=== PATIENT | female | born 1930 | race Asian ===

== ENCOUNTER 2018-09-17 08:23 | Inpatient (IN) | payer MEDICARE, MEDICAID ==
[~2018-09-17] VITALS: Ht 149.9 cm; Wt 44.9 kg
[2018-09-17] MEDS ORDERED: Morphine Sulfate 2mg/ml Inj IVP ONE (08:30)
[2018-09-17 08:49] VITALS: BP 196/79
[2018-09-17 08:53] LABS: BASOPHILS % (AUTO) 0.4 % (0.0-2.0); EOSINOPHILS % (AUTO) 1.2 % (0.0-3.0); HEMATOCRIT 32.5 % (37.0-47.0); HEMOGLOBIN 10.7 G/DL (12.0-16.0); LYMPHOCYTES % (AUTO) 50.7 % (20.0-45.0); MEAN CORPUSCULAR VOLUME 87 FL (80-99); MONOCYTES % (AUTO) 7.2 % (1.0-10.0); NEUTROPHILS % (AUTO) 40.6 % (45.0-75.0); PLATELET COUNT 251 K/UL (150-450); RED BLOOD COUNT 3.73 M/UL (4.20-5.40); RED CELL DISTRIBUTION WIDTH 12.2 % (11.6-14.8); WHITE BLOOD COUNT 4.5 K/UL (4.8-10.8)
--- NOTE | 2018-09-17 09:07 | Emergency Room Report ---
History of Present Illness General Chief Complaint: Multiple Trauma/Fall Source: Patient Present Illness HPI 88-year-old female resents ED for evaluation. Patient brought in by EMS status post fall. Fell this morning. Hit her head. Deformity to the right hip. No LOC. Denies chest pain or shortness of breath. Denies any headache. Pain to the hip is a 10 out of 10, sharp, nonradiating. Tetanus unknown. No other injuries. No other aggravating relieving factors. Denies any other associated symptoms Allergies: Coded Allergies: No Known Allergies (Unverified , 09/17/18) Patient History Past Medical History: none Past Surgical History: none Pertinent Family History: none Social History: Denies: smoking, alcohol use, drug use Now: No Immunizations: UTD Reviewed Nursing Documentation: PMH: Agreed; PSxH: Agreed Nursing Documentation-PMH Past Medical History: No Stated History Review of Systems All Other Systems: negative except mentioned in HPI Physical Exam Vital Signs Date Time Temp Pulse Resp B/P (MAP) Pulse Ox O2 Delivery O2 Flow Rate FiO2 09/17/18 08:18 97.3 72 18 210/103 97 Room Air 09/17/18 08:49 100 Sp02 EP Interpretation: reviewed, normal General Appearance: no apparent distress, alert, GCS 15, non-toxic Head: normocephalic, other - abrasion to R side of scalp Eyes: bilateral eye normal inspection, bilateral eye PERRL ENT: normal ENT inspection Neck: normal inspection Respiratory: chest non-tender, lungs clear, normal breath sounds, speaking full sentences Cardiovascular #1: regular rate, rhythm, no edema Gastrointestinal: normal bowel sounds, non tender, soft, non-distended, no guarding, no rebound Rectal: deferred Genitourinary: no CVA tenderness, other - prolapsed uterus = [place] present Musculoskeletal: tender - deformity R hip Neurologic: alert, oriented x3, responsive, motor strength/tone normal, sensory intact, speech normal Psychiatric: normal inspection Skin: normal inspection Lymphatic: normal inspection Medical Decision Making Diagnostic Impression: Primary Impression: Multiple injuries due to trauma Additional Impressions: Scalp abrasion Qualified Codes: S00.01XA - Abrasion of scalp, initial encounter Intertrochanteric fracture of right femur Qualified Codes: S72.141A - Displaced intertrochanteric fracture of right femur, initial encounter for closed fracture Prolapsed uterus Hypertension Qualified Codes: I10 - Essential (primary) hypertension ER Course Hospital Course 88-year-old female presents to ED with R hip pain and shortening s/p fall. abrasion to scalp Differential diagnoses include: fracture, dislocation, contusion Clinical course Patient placed on stretcher. After initial history and physical I ordered labs , pain medication, TDAP and imaging studies Labs reviewed- no leukocytosis noted, electrolytes okay, hemoglobin/hematocrit okay CT head no acute process CT Pelvis shows R comminuted intertrochanteric fx EKG - NSR, no acute ischemic changes interpreted by me On exam there also appears to be a prolapsed uterus. Patient states that she has had this for many years now. Does not want me to further evaluate and states she wants to focus on the hip. Abrasion to the scalp. Irrigated with hydrogen peroxide. Tetanus given. Hypertensive. Given hydralazine Case discussed with Dr. Appiah who agreed to consult on this case. Case discussed with Dr. Pineda who agreed to accept the patient to his service for further care and support i. I feel this is a highly complex case requiring extensive working including EKG/Rhythm strip, Xray/CT/US, Blood/urine lab work, repeat exams while in ED, and administration of strong opiates/narcotics for pain control, admission to hospital or close patient follow up. Diagnosis - intertrochanteric fracture, multiple injuries due to trauma, scalp abrasion, prolapsed uterus, hypertension Admitted to floor in serious condition Labs Test 09/17/18 08:42 White Blood Count 4.5 K/UL (4.8-10.8) Red Blood Count 3.73 M/UL (4.20-5.40) Hemoglobin 10.7 G/DL (12.0-16.0) Hematocrit 32.5 % (37.0-47.0) Mean Corpuscular Volume 87 FL (80-99) Mean Corpuscular Hemoglobin 28.7 PG (27.0-31.0) Mean Corpuscular Hemoglobin Concent 33.0 G/DL (32.0-36.0) Red Cell Distribution Width 12.2 % (11.6-14.8) Platelet Count 251 K/UL (150-450) Mean Platelet Volume 5.3 FL (6.5-10.1) Neutrophils (%) (Auto) 40.6 % (45.0-75.0) Lymphocytes (%) (Auto) 50.7 % (20.0-45.0) Monocytes (%) (Auto) 7.2 % (1.0-10.0) Eosinophils (%) (Auto) 1.2 % (0.0-3.0) Basophils (%) (Auto) 0.4 % (0.0-2.0) Prothrombin Time 10.3 SEC (9.30-11.50) Prothromb Time International Ratio 1.0 (0.9-1.1) Activated Partial Thromboplast Time 24 SEC (23-33) Sodium Level 140 MMOL/L (136-145) Potassium Level 3.7 MMOL/L (3.5-5.1) Chloride Level 104 MMOL/L (98-107) Carbon Dioxide Level 29 MMOL/L (21-32) Anion Gap 7 mmol/L (5-15) Blood Urea Nitrogen 20 mg/dL (7-18) Creatinine 0.8 MG/DL (0.55-1.30) Estimat Glomerular Filtration Rate mL/min (>60) Glucose Level 114 MG/DL (74-106) Calcium Level 9.0 MG/DL (8.5-10.1) Total Bilirubin 0.4 MG/DL (0.2-1.0) Aspartate Amino Transf (AST/SGOT) 27 U/L (15-37) Alanine Aminotransferase (ALT/SGPT) 16 U/L (12-78) Alkaline Phosphatase 59 U/L (46-116) Total Protein 8.3 G/DL (6.4-8.2) Albumin 3.7 G/DL (3.4-5.0) Globulin 4.6 g/dL Albumin/Globulin Ratio 0.8 (1.0-2.7) EKG Diagnostic Results Rate: normal Rhythm: NSR ST Segments: no acute changes ASA given to the pt in ED: No Rhythm Strip Diag. Results EP Interpretation: yes Rhythm: NSR, no PVC's, no ectopy CT/MRI/US Diagnostic Results CT/MRI/US Diagnostic Results #1: Imaging Test Ordered: CT head Impression no acute process CT/MRI/US Diagnostic Results #2: Imaging Test Ordered: CT Pelvis Impression comminuted R intertrochanteric fx. pelvic floor insufficiency ? prolapsed uterus Last Vital Signs Date Time Temp Pulse Resp B/P (MAP) Pulse Ox O2 Delivery O2 Flow Rate FiO2 09/17/18 08:49 72 16 Room Air 100 09/17/18 08:49 97.4 196/79 100 Status: improved Disposition: ADMITTED INPATIENT Condition: Serious Scripts No Active Prescriptions or Reported Meds Referrals: NOT CHOSEN IPA/,REFERRING (PCP) Kenn Mitchell MD Sep 17, 2018 09:07
[2018-09-17 09:12] LABS: ANION GAP 7 mmol/L (5-15); BLOOD UREA NITROGEN 20 mg/dL (7-18); CARBON DIOXIDE 29 MMOL/L (21-32); CHLORIDE 104 MMOL/L (98-107); CREATININE 0.8 MG/DL (0.55-1.30); POTASSIUM 3.7 MMOL/L (3.5-5.1); SODIUM 140 MMOL/L (136-145)
[2018-09-17 09:16] LABS: ALANINE AMINOTRANSFERASE 16 U/L (12-78); ALBUMIN 3.7 G/DL (3.4-5.0); ALBUMIN/GLOBULIN RATIO 0.8 (1.0-2.7); ALKALINE PHOSPHATASE 59 U/L (46-116); ASPARTATE AMINO TRANSFERASE 27 U/L (15-37); BILIRUBIN,TOTAL 0.4 MG/DL (0.2-1.0)
--- NOTE | 2018-09-17 09:27 | Diagnostic Imaging Report ---
Indications: Head trauma, 10 out of 10 pain, head laceration Technique: Spiral acquisitions obtained through the brain. Angled axial and coronal 5 x 5 mm slices were reconstructed. Total dose length product 1470.77 mGycm. CTDI vol(s) 70.38 mGy. Dose reduction achieved using automated exposure control Comparison: None. Findings: There is a right parietal region scalp hematoma. Air bubbles within the subcutaneous fat indicate penetrating trauma as well. No underlying calvarial abnormality. There is age-related enlargement of the ventricles and extra axial CSF spaces. There is periventricular deep white matter low-attenuation consistent with chronic ischemic change. No acute intracranial hemorrhage nor edema. No mass effect nor midline shift. Otherwise normal samayoa-white differentiation. Visualized orbits and sinuses are unremarkable. Impression: Evidence of right parietal region scalp soft tissue trauma with contusion and laceration. Negative for acute intracranial bleed or mass effect. Chronic and age-related changes, as described The CT scanner at [facility] is accredited by the [employer] and the scans are performed using protocols designed to limit radiation exposure to as low as reasonably achievable to attain images of sufficient resolution adequate for diagnostic evaluation.
[2018-09-17] MEDS ORDERED: Hydrogen Peroxide 473ml Bottle TOPIC ONE (09:30)
[2018-09-17] MEDS ORDERED: Tetanus/Diptheria/Pertussis Vaccine 0.5ml Syr IM ONE (09:45)
--- NOTE | 2018-09-17 10:06 | Diagnostic Imaging Report ---
Indication: Fell on right hip, 10 out of 10 right hip pain Technique: Noncontrast spiral acquisitions obtained through the pelvis. Multiplanar reconstructions generated. Total dose length product 273.76 mGycm. CTDIvol(s) 9.22 mGy. Dose reduction achieved using automated exposure control Comparison: none Findings: There is a comminuted intertrochanteric fracture of the right hip, with fracture line extending anteriorly into the femoral neck. This is impacted and slightly posteriorly angulated. No evidence of pelvic fracture. The hip joint spaces are preserved. The left hip is intact. The sacrum is intact. There are degenerative changes of the lumbosacral junction. There are also degenerative changes of the bilateral sacroiliac joints. There is a slight degree of soft tissue contusion of the overlying subcutaneous fat. There is evidence of significant pelvic floor insufficiency. Soft tissue attenuation structure extends at least 5 cm below the perineum, beyond the edge of the imaging volume. Per referring physician, patient has history of prolapsed uterus, so this presumably represents a severely retroverted uterus prolapse into the bladder floor. The rectum, anus, and bladder are appropriately positioned above the pelvic floor. The remaining pelvic viscera are grossly unremarkable. Impression: Positive for comminuted right hip intertrochanteric fracture Evidence of unusual pelvic floor insufficiency, with prolapse of what is probably a severely retroverted uterus Findings discussed by phone with Dr. Mitchell in the emergency room previously The CT scanner at [facility] is accredited by the [employer] and the scans are performed using protocols designed to limit radiation exposure to as low as reasonably achievable to attain images of sufficient resolution adequate for diagnostic evaluation.
[2018-09-17 10:15] VITALS: BP 161/64
[2018-09-17 10:30] VITALS: BP 130/63
[2018-09-17 11:00] VITALS: BP 135/67
--- NOTE | 2018-09-17 12:09 | History and Physical ---
History of Present Illness General Date patient seen: Sep 17, 2018 Time patient seen: 11:56 Reason for Hospitalization: Multiple Trauma/Fall Present Illness HPI 88 yo female with h/o uterine prolapse presents after a recent GLF. patient was at a bus stop, was trying to get onto the bus when she slipped and fell. Patient states she hit her head, however states pain is well controlled. patient hurt her hip on the right side, states it is 10/10 pain, nonradiating. Denies taking any medications at home, denies any other medical conditions. States she lives in a elderly citizen home. patient presented to the ED, ct pelvis was done that was reviewed and positive for a right hip comminuted intertrochanteric fracture. Ortho was called and planned for OR. Social Hx: denies smoking, drinking alcohol or drug use fam hx: denies any sig pmh that she is aware of code status discussed, FULL CODE. Allergies: Coded Allergies: No Known Allergies (Unverified , 09/17/18) Medication History No Active Prescriptions or Reported Meds Patient History History Provided By: Patient Healthcare decision maker Resuscitation status Advanced Directive on File Review of Systems ROS Narrative 14 point ros reviewed and negative except for the above Physical Exam General Appearance: WD/WN, no apparent distress, alert Lines, tubes and drains: peripheral HEENT: normocephalic, other - small abrasion noted on post lat asprect of scalp on right side. 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, abnormal gait, alert, oriented x 3, responsive, normal mood/affect Last 24 Hour Vital Signs Date Time Temp Pulse Resp B/P (MAP) Pulse Ox O2 Delivery O2 Flow Rate FiO2 09/17/18 11:32 Room Air 09/17/18 10:40 97.6 53 15 130/63 100 Room Air 09/17/18 10:30 97.4 80 16 130/63 100 Room Air 100 09/17/18 10:18 161/64 12/3/18 10:15 97.4 78 18 161/64 100 Room Air 09/17/18 08:49 72 16 Room Air 100 09/17/18 08:49 97.4 72 16 196/79 100 Room Air 09/17/18 08:18 97.3 72 18 210/103 97 Room Air Laboratory Tests Test 09/17/18 08:42 White Blood Count 4.5 K/UL (4.8-10.8) L Red Blood Count 3.73 M/UL (4.20-5.40) L Hemoglobin 10.7 G/DL (12.0-16.0) L Hematocrit 32.5 % (37.0-47.0) L Mean Corpuscular Volume 87 FL (80-99) Mean Corpuscular Hemoglobin 28.7 PG (27.0-31.0) Mean Corpuscular Hemoglobin Concent 33.0 G/DL (32.0-36.0) Red Cell Distribution Width 12.2 % (11.6-14.8) Platelet Count 251 K/UL (150-450) Mean Platelet Volume 5.3 FL (6.5-10.1) L Neutrophils (%) (Auto) 40.6 % (45.0-75.0) L Lymphocytes (%) (Auto) 50.7 % (20.0-45.0) H Monocytes (%) (Auto) 7.2 % (1.0-10.0) Eosinophils (%) (Auto) 1.2 % (0.0-3.0) Basophils (%) (Auto) 0.4 % (0.0-2.0) Prothrombin Time 10.3 SEC (9.30-11.50) Prothromb Time International Ratio 1.0 (0.9-1.1) Activated Partial Thromboplast Time 24 SEC (23-33) Sodium Level 140 MMOL/L (136-145) Potassium Level 3.7 MMOL/L (3.5-5.1) Chloride Level 104 MMOL/L (98-107) Carbon Dioxide Level 29 MMOL/L (21-32) Anion Gap 7 mmol/L (5-15) Blood Urea Nitrogen 20 mg/dL (7-18) H Creatinine 0.8 MG/DL (0.55-1.30) Estimat Glomerular Filtration Rate mL/min (>60) Glucose Level 114 MG/DL (74-106) H Calcium Level 9.0 MG/DL (8.5-10.1) Total Bilirubin 0.4 MG/DL (0.2-1.0) Aspartate Amino Transf (AST/SGOT) 27 U/L (15-37) Alanine Aminotransferase (ALT/SGPT) 16 U/L (12-78) Alkaline Phosphatase 59 U/L (46-116) Total Protein 8.3 G/DL (6.4-8.2) H Albumin 3.7 G/DL (3.4-5.0) Globulin 4.6 g/dL Albumin/Globulin Ratio 0.8 (1.0-2.7) L Height (Feet): 4 Height (Inches): 11.00 Weight (Pounds): 100 Medications Current Medications Medications (Trade) Dose Ordered Sig/Tati Route PRN Reason Start Time Stop Time Status Last Admin Dose Admin Sodium Chloride 1,000 ml @ 100 mls/hr Q10H IV 09/17/18 09:45 10/17/18 09:44 09/17/18 09:41 Assessment/Plan Problem List: (1) Intertrochanteric fracture of right femur ICD Codes: S72.141A - Displaced intertrochanteric fracture of right femur, initial encounter for closed fracture SNOMED: 501417595 Qualifiers: Qualified Codes: S72.141A - Displaced intertrochanteric fracture of right femur, initial encounter for closed fracture (2) Fall from ground level ICD Codes: W18.30XA - Fall on same level, unspecified, initial encounter SNOMED: 09693631 (3) Scalp abrasion ICD Codes: S00.01XA - Abrasion of scalp, initial encounter SNOMED: 322499876 Qualifiers: Qualified Codes: S00.01XA - Abrasion of scalp, initial encounter (4) Multiple injuries due to trauma ICD Codes: T07.XXXA - Unspecified multiple injuries, initial encounter SNOMED: 606811781 (5) Prolapsed uterus Assessment & Plan: stable outpt f/u ICD Codes: N81.4 - Uterovaginal prolapse, unspecified SNOMED: 71670147 (6) Intractable pain ICD Codes: R52 - Pain, unspecified SNOMED: 27959601 Status: stable Assessment/Plan #Ground level fall #Intractable Pain #Intertrochanteric fracture of right femur #Multiple injuries due to trauma #Scalp Abrasion - CTH reviewed, neg acute - CT pelvis reviewed, Positive for comminuted right hip intertrochanteric fracture - (ortho) called by ED - Pre-op clearance: EKG reviewed, no acute st t wave changes patient denies any cardiac hx, denies DE w/in past 30 days or unstable/severe angina, decompensated HF, significant arrhythmias, severe or Sx MS No h/o of CAD, HF, Cerebrovascular dz, DM, or renal insufficience with Cr > 2. patient to undergo intermediate risk surgery (1-5%) - patient has good functional status, able to walk up stairs and walk 2-3 blocks without a problem. METS > 4 - patient is medically stable and medically optimized for surgery, patient is low risk for intermediate to high risk surgery - periop: pain control, ancef x1 per surgery - post op care: incentive spirometry, mobilization, PT, ppx anticoagulation per surgery. DIET: NPO for surgery ppxL NO ANTICOAGULATION BEFORE SURGERY, SCD I have spent over over 65 minutes regarding patient care and counseling, and over 40 minutes of face to face time with the patient. Thank you Madonna Tafoya MD, MD Sep 17, 2018 12:09
[2018-09-17] MEDS: Morphine Sulfate 2mg/ml Inj IVP PRN ×3 (12:44→23:49)
--- NOTE | 2018-09-17 13:17 | Consultation ---
Consult Note Consult Note chart reviewed. rt hip IT fracture after fall Will plan for ORIF tomorrow. NPO tonight. Medical clearance with 2D Echo Mindi Oneill Sep 17, 2018 13:17
[2018-09-17 16:00] VITALS: BP 143/68
[2018-09-17 20:21] VITALS: BP 136/69
[2018-09-18] VITALS (14 sets, daily range): BP systolic 128–159; BP diastolic 64–85
[2018-09-18] MEDS ORDERED: ceFAZolin 2gm/50ml Premix 50 ML IV SCH (04:00)
[2018-09-18] MEDS: Morphine Sulfate 2mg/ml Inj IVP PRN (05:03)
--- NOTE | 2018-09-18 07:16 | Pre-Procedure Note/Attestation ---
Pre-Procedure Note/Attestation Complete Prior to Procedure Planned Procedure: right Procedure Narrative: rt hip ORIF Indications for Procedure Pre-Operative Diagnosis: rt hip fracture Attestation I attest that I discussed the nature of the procedure; its benefits; risks and complications; and alternatives (and the risks and benefits of such alternatives ), prior to the procedure, with the patient (or the patient's legal publications sales representative). I attest that, if there was a reasonable possibility of needing a blood transfusion, the patient (or the patient's legal publications sales representative) was given the [facility] standardized written summary, pursuant to the [place] Jun Blood Safety Act ([place] Health and Safety Code # 1645, as amended). I attest that I re-evaluated the patient just prior to the surgery and that there has been no change in the patient's H&P, except as documented below: NONE Omari Edwards MD Sep 18, 2018 07:16
--- NOTE | 2018-09-18 07:25 | Consultation ---
Consult Note Consult Note pt seen and evaluated 88 yo female with fall and rt hip IT fracture Rt hip pain and tenderness. Sx for Rt hip ORIF today d/w pt and nursing risks/benefits discussed. all questions answered. full note dictated Mindi Oneill Sep 18, 2018 07:25
--- NOTE | 2018-09-18 08:20 | General Progress Note ---
Assessment/Plan Problem List: (1) Intertrochanteric fracture of right femur ICD Codes: S72.141A - Displaced intertrochanteric fracture of right femur, initial encounter for closed fracture SNOMED: 836296168 Qualifiers: Qualified Codes: S72.141A - Displaced intertrochanteric fracture of right femur, initial encounter for closed fracture (2) Fall from ground level ICD Codes: W18.30XA - Fall on same level, unspecified, initial encounter SNOMED: 38242130 (3) Scalp abrasion ICD Codes: S00.01XA - Abrasion of scalp, initial encounter SNOMED: 306327538 Qualifiers: Qualified Codes: S00.01XA - Abrasion of scalp, initial encounter (4) Multiple injuries due to trauma ICD Codes: T07.XXXA - Unspecified multiple injuries, initial encounter SNOMED: 358048666 (5) Prolapsed uterus Assessment & Plan: stable outpt f/u ICD Codes: N81.4 - Uterovaginal prolapse, unspecified SNOMED: 55752545 (6) Intractable pain ICD Codes: R52 - Pain, unspecified SNOMED: 18095348 Status: stable, unchanged Assessment/Plan #Ground level fall #Intractable Pain #Intertrochanteric fracture of right femur #Multiple injuries due to trauma #Scalp Abrasion - CTH reviewed, neg acute - CT pelvis reviewed, Positive for comminuted right hip intertrochanteric fracture - (ortho) called by ED, planned for OR today - 2d echo ordered per ortho, pending read - continue pain control with IV Morphin 2mg q4hrs prn pain - Pre-op clearance: EKG reviewed, no acute st t wave changes patient denies any cardiac hx, denies [place] w/in past 30 days or unstable/severe angina, decompensated HF, significant arrhythmias, severe or Sx MS No h/o of CAD, HF, Cerebrovascular dz, DM, or renal insufficience with Cr > 2. patient to undergo intermediate risk surgery (1-5%) - patient has good functional status, able to walk up stairs and walk 2-3 blocks without a problem. METS > 4 - patient is medically stable and medically optimized for surgery, patient is low risk for intermediate to high risk surgery - periop: pain control, ancef x1 per surgery - post op care: incentive spirometry, mobilization, PT, ppx anticoagulation per surgery. DIET: NPO for surgery ppxL NO ANTICOAGULATION BEFORE SURGERY, SCD Inpatient level of care warranted for this patient because patient is a 74 yo female with complicated cardiac hx with CAD sp stenting who presents after GLF and resultant hip pain. I have a high level of concern because of hip fracture noted on xr and patient's hx of hip fracture in the past. Plan of care is for cardiology and ortho evaluation along with physical therapy evaluation for safe dispo. Patient care is expected to be greater than 2 midnights. CPT code: 90728 I have documented, updated, and reviewed the patient's current medication list and have documented it in the patient's note. I have spent over 56 minutes on this patient's case, and over 34 minutes was dedicated to counseling and/or care coordination Madonna Bunch MD [facility] Subjective Date patient seen: Sep 18, 2018 Time patient seen: 08:17 Allergies: Coded Allergies: No Known Allergies (Unverified , 09/17/18) Subjective s/p GLF, multiple injuries due to trauma, intertrochanteric fracture of right femur, scalp abrasion, intractable pain stable, doing well, denies any complaints, states pain is well controlled with IV pain medications denies any fevers/chills planned for OR per ortho no acute events overnight ROS: 12 point ros reviewed, negative except for the above Objective Last 24 Hour Vital Signs Date Time Temp Pulse Resp B/P (MAP) Pulse Ox O2 Delivery O2 Flow Rate FiO2 09/18/18 04:00 98.3 91 18 128/73 (91) 97 09/18/18 00:00 98.5 78 17 131/64 (86) 97 09/17/18 21:00 Room Air 09/17/18 20:21 98.4 83 16 136/69 (91) 97 09/17/18 16:34 Room Air 09/17/18 16:00 98.6 79 18 143/68 (93) 97 09/17/18 11:32 Room Air 09/17/18 11:00 97.4 86 18 135/67 (89) 99 09/17/18 10:40 97.6 53 15 130/63 100 Room Air 09/17/18 10:30 97.4 80 16 130/63 100 Room Air 100 09/17/18 10:18 161/64 09/17/18 10:15 97.4 78 18 161/64 100 Room Air 09/17/18 08:49 72 16 Room Air 100 09/17/18 08:49 97.4 72 16 196/79 100 Room Air 09/17/18 08:18 97.3 72 18 210/103 97 Room Air Intake and Output 09/17/18 09/18/18 19:00 07:00 Intake Total 880 ml 1200 ml Output Total 500 ml 650 ml Balance 380 ml 550 ml Intake IV Total 880 ml 1200 ml Output Urine Total 500 ml 650 ml # Voids 1 Laboratory Tests 09/17/18 08:42: White Blood Count 4.5L, Red Blood Count 3.73L, Hemoglobin 10.7L, Hematocrit 32.5L, Mean Corpuscular Volume 87, Mean Corpuscular Hemoglobin 28.7, Mean Corpuscular Hemoglobin Concent 33.0, Red Cell Distribution Width 12.2, Platelet Count 251, Mean Platelet Volume 5.3L, Neutrophils (%) (Auto) 40.6L, Lymphocytes (%) (Auto) 50.7H, Monocytes (%) (Auto) 7.2, Eosinophils (%) (Auto) 1.2, Basophils (%) (Auto) 0.4, Prothrombin Time 10.3, Prothromb Time International Ratio 1.0, Activated Partial Thromboplast Time 24, Sodium Level 140, Potassium Level 3.7, Chloride Level 104, Carbon Dioxide Level 29, Anion Gap 7, Blood Urea Nitrogen 20H, Creatinine 0.8, Estimat Glomerular Filtration Rate , Glucose Level 114H, Calcium Level 9.0, Total Bilirubin 0.4, Aspartate Amino Transf (AST/ SGOT) 27, Alanine Aminotransferase (ALT/SGPT) 16, Alkaline Phosphatase 59, Total Protein 8.3H, Albumin 3.7, Globulin 4.6, Albumin/Globulin Ratio 0.8L Height (Feet): 4 Height (Inches): 11.00 Weight (Pounds): 99 General Appearance: WD/WN, no apparent distress, alert EENT: PERRL/EOMI, normal ENT inspection, TMs normal, pharynx normal Neck: non-tender, normal alignment, supple, normal inspection Cardiovascular: normal peripheral pulses, normal rate, regular rhythm Respiratory/Chest: chest wall non-tender, lungs clear, normal breath sounds, no respiratory distress, no accessory muscle use Abdomen: normal bowel sounds, non tender, soft, no organomegaly, no mass Extremities: normal inspection, no calf tenderness, other - right hip TTP and dec rom due to pain 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
[2018-09-18 09:14] LABS: BASOPHILS % (AUTO) 0.3 % (0.0-2.0); HEMATOCRIT 25.1 % (37.0-47.0); HEMOGLOBIN 8.1 G/DL (12.0-16.0); LYMPHOCYTES % (AUTO) 10.3 % (20.0-45.0); MEAN CORPUSCULAR VOLUME 87 FL (80-99); MONOCYTES % (AUTO) 6.4 % (1.0-10.0); NEUTROPHILS % (AUTO) 83.1 % (45.0-75.0); PLATELET COUNT 177 K/UL (150-450); RED BLOOD COUNT 2.88 M/UL (4.20-5.40); RED CELL DISTRIBUTION WIDTH 12.6 % (11.6-14.8); WHITE BLOOD COUNT 6.8 K/UL (4.8-10.8)
[2018-09-18 09:39] LABS: ANION GAP 9 mmol/L (5-15); BLOOD UREA NITROGEN 28 mg/dL (7-18); CALCIUM 8.1 MG/DL (8.5-10.1); CARBON DIOXIDE 23 MMOL/L (21-32); CHLORIDE 108 MMOL/L (98-107); CREATININE 0.7 MG/DL (0.55-1.30); POTASSIUM 3.6 MMOL/L (3.5-5.1); SODIUM 140 MMOL/L (136-145)
[2018-09-18] MEDS ORDERED: LR 1000ml 1,000 ML IVLG SCH (12:23)
--- NOTE | 2018-09-18 12:28 | Immediate Post-Op Evaluation ---
Immediate Post-Op Evalulation Immediate Post-Op Evalulation Procedure: ORIF R Hip Date of Evaluation: Sep 18, 2018 Time of Evaluation: 14:24 IV Fluids: 500 LR Blood Products: 0 Estimated Blood Loss: 50 Urinary Output: 0 Blood Pressure Systolic: 159 Blood Pressure Diastolic: 85 Pulse Rate: 99 Respiratory Rate: 16 O2 Sat by Pulse Oximetry: 100 Temperature (Fahrenheit): 98.5 Pain Score (1-10): 0 Nausea: No Vomiting: No Complications 0 Patient Status: awake, reacts, patent, none Hydration Status: adequate Dru Gram Ancef IV Given Within 1 Hr of Incision: Yes Time Given: 13:01 Manuel Adams MD Sep 18, 2018 12:28
--- NOTE | 2018-09-18 12:28 | Anethesia Preoperative Eval ---
Anesthesia Pre-op PMH/ROS General Date of Evaluation: Sep 18, 2018 Time of Evaluation: 12:31 Anesthesiologist: Bryan ASA Score: ASA 3 Mallampati Score Class I : Soft palate, uvula, fauces, pillars visible Class II: Soft palate, uvula, fauces visible Class III: Soft palate, base of uvula visible Class IV: Only hard plate visible Mallampati Classification: Class II Surgeon: Jerry Diagnosis: R Hip Pain Surgical Procedure: ORIF R Hip Anesthesia History: none Family History: no anesthesia problems Allergies: Coded Allergies: No Known Allergies (Unverified , 09/17/18) Medications: see eMAR Patient NPO?: Yes NPO Date: Sep 18, 2018 NPO Time: 0000 Past Medical History Cardiovascular: Reports: HTN HEENT: Reports: [place] (L), [place] (R) Hematology/Immune: Reports: anemia Musculoskeletal/Integumentary: Reports: other - osteoporosis Anesthesia Pre-op Phys. Exam Physician Exam Last Vital Signs Date Time Temp Pulse Resp B/P (MAP) Pulse Ox O2 Delivery O2 Flow Rate FiO2 09/18/18 12:00 97.8 85 18 144/78 (100) 96 09/18/18 08:27 Room Air 09/17/18 10:30 100 Constitutional: NAD Neurologic: CN 2-12 intact Cardiovascular: RRR Respiratory: CTA Gastrointestinal: S/NT/ND Airway Exam Mallampati Score: Class II MO: limited ROM: limited Teeth: missing, intact Anesthesia Pre-op A/P Labs Hematology Test 09/18/18 08:40 White Blood Count 6.8 K/UL (4.8-10.8) # Red Blood Count 2.88 M/UL (4.20-5.40) L Hemoglobin 8.1 G/DL (12.0-16.0) L Hematocrit 25.1 % (37.0-47.0) L Mean Corpuscular Volume 87 FL (80-99) Mean Corpuscular Hemoglobin 28.0 PG (27.0-31.0) Mean Corpuscular Hemoglobin Concent 32.1 G/DL (32.0-36.0) Red Cell Distribution Width 12.6 % (11.6-14.8) Platelet Count 177 K/UL (150-450) Mean Platelet Volume 5.8 FL (6.5-10.1) L Neutrophils (%) (Auto) 83.1 % (45.0-75.0) H Lymphocytes (%) (Auto) 10.3 % (20.0-45.0) L Monocytes (%) (Auto) 6.4 % (1.0-10.0) Eosinophils (%) (Auto) 0.0 % (0.0-3.0) Basophils (%) (Auto) 0.3 % (0.0-2.0) Chemistry Test 09/18/18 08:40 Sodium Level 140 MMOL/L (136-145) Potassium Level 3.6 MMOL/L (3.5-5.1) Chloride Level 108 MMOL/L (98-107) H Carbon Dioxide Level 23 MMOL/L (21-32) Anion Gap 9 mmol/L (5-15) Blood Urea Nitrogen 28 mg/dL (7-18) H Creatinine 0.7 MG/DL (0.55-1.30) Estimat Glomerular Filtration Rate mL/min (>60) Glucose Level 112 MG/DL (74-106) H Calcium Level 8.1 MG/DL (8.5-10.1) L Risk Assessment & Plan Assessment: ASA 3 Plan: GA, Spinal, SED Status Change Before Surgery: No Pre-Antibiotics Dru gram Ancef IV Given Within 1 Hr of Incision: Yes Time Given: 13:01 Manuel Adams MD Sep 18, 2018 12:27
[2018-09-18] MEDS ORDERED: Propofol 200mg/20ml IV ONE (12:30)
[2018-09-18] MEDS ORDERED: HYDROmorphone 1mg/ml Carpuject SUBQ PRN (12:30)
[2018-09-18] MEDS ORDERED: NS Irrig 1000ml ONE (12:30)
[2018-09-18] MEDS ORDERED: Atropine Sulfate 0.4mg/ml inj IVP PRN (12:30)
[2018-09-18] MEDS ORDERED: Hydromorphone 0.5mg/0.5ml inj IVP PRN (12:30)
[2018-09-18] MEDS ORDERED: Midazolam 2mg/2ml Inj IVP PRN (12:30)
[2018-09-18] MEDS ORDERED: HYDROcodone/Acetamin 7.5/325 tab ORAL PRN (12:30)
[2018-09-18] MEDS ORDERED: oxyCODONE HCL/Acetaminophen 5/325mg ORAL PRN (12:30)
[2018-09-18] MEDS ORDERED: Metoclopramide 10mg/2ml Inj IVP PRN (12:30)
[2018-09-18] MEDS ORDERED: Sterile Water Irrig 1000ml IRRIG ONE (12:30)
[2018-09-18] MEDS ORDERED: DiphenhydrAMINE 50mg/ml Inj IVP PRN (12:30)
[2018-09-18] MEDS ORDERED: fentaNYL 100 mcg/2 mL IV PRN (12:30)
[2018-09-18] MEDS ORDERED: LORazepam Inj 2mg/ml 1ml IV PRN (12:30)
[2018-09-18] MEDS ORDERED: Meperidine 50mg/ml Inj(FOR RIGORS ONLY) IVP PRN (12:30)
[2018-09-18] MEDS ORDERED: Norco 5mg/325mg tab ORAL PRN (12:30)
[2018-09-18] MEDS ORDERED: LR 1000ml ONE (12:30)
[2018-09-18] MEDS ORDERED: Sodium Chloride 10ml vial INJ ONE (12:32)
[2018-09-18] MEDS ORDERED: Lidocaine 1% Plain 30 ml INJ ONE (12:32)
[2018-09-18] MEDS ORDERED: EPINEPHrine 1mg/1ml Amp ONE (12:32)
[2018-09-18] MEDS ORDERED: Midazolam 2mg/2ml Inj ONE (12:32)
[2018-09-18] MEDS ORDERED: NeoSporin Gu Irrig 1ml Amp IRRIG ONE (12:36)
[2018-09-18] MEDS ORDERED: Bupivacaine 0.5% Inj 30 ml vial INJ ONE (12:36)
[2018-09-18] MEDS ORDERED: Bacitracin 50000 Units Vial ONE (12:36)
--- NOTE | 2018-09-18 13:45 | Consultation ---
DATE OF CONSULTATION: 09/18/2018 ORTHOPEDIC CONSULTATION CONSULTING PHYSICIAN: Omari Edwards M.D. HISTORY OF PRESENT ILLNESS: The patient is a pleasant 88-year-old female, who was at the bus stop and slipped and fell, landing on her right side. She was transferred to [facility] ER where she was noted to have a right hip intertrochanteric fracture. Orthopedic consult has been called for surgical intervention. PAST MEDICAL HISTORY: Uterine prolapse. PAST SURGICAL HISTORY: None. CURRENT MEDICATIONS: Please see chart. ALLERGIES: None. SOCIAL HISTORY: She does not smoke or drink. She is generally independent with her activities. REVIEW OF SYSTEMS: The patient denies any fever, chills, nausea, vomiting, shortness of breath or chest pain. She does complain of right hip pain. PHYSICAL EXAMINATION: GENERAL: She is a pleasant woman. She is cooperative with examination. EXTREMITIES: She has tenderness around the right hip with painful range of motion in any direction. She is neurovascularly intact. There is no skin breakdown, open wounds, or sign of infection. No significant swelling. X-RAY: CT scan is reviewed revealing comminuted intertrochanteric fracture of the right hip. AP pelvis was ordered, although I have not seen it yet. IMPRESSION: Right hip intertrochanteric fracture after fall. DISCUSSION: At this time, I discussed with the patient my findings. I recommend going forward with open reduction internal fixation with short gamma nail. She understands and would like to get this done. She understands risks of surgery including nerve injury, vessel injury, risk of infection, bleeding, risk of fracture, hardware failure, need for revision surgery down the line as well as risk of DVT and PE. We will work on getting this set up for this later today. The patient has been seen by Medicine team and has been cleared for surgery. All her questions regarding this have been answered. Omari Edwards M.D. Richa Holt. DR: TACO JOB#: [id number] CC: ANGELICA
--- NOTE | 2018-09-18 14:01 | Brief Operative Note ---
Immediate Post Operative Note Operative Note Chief Complaint: rt hip pain Pre-op Diagnosis: rt hip IT fracture Procedure: rt hip ORIF Post-op Diagnosis: same as pre-op Findings: consistent w/pre-op dx studies Surgeon: md margarita [employer] Aide: vale perera Anesthesiologist: md sury Anesthesia: general Specimen: none Complications: none Condition: stable Fluids: ns Estimated Blood Loss: minimal Drains: none Implant(s) used?: Yes - Mindi Farris Sep 18, 2018 14:01
--- NOTE | 2018-09-18 14:23 | Diagnostic Imaging Report ---
Indication: Traumatic right hip pain Technique: One view of the pelvis Comparison: Pelvic CT 5 hours earlier Findings: As demonstrated on prior CT scan, there is a comminuted intertrochanteric fracture of the right hip. This is slightly angulated. Bones are osteoporotic. No definite pelvic fracture. The joint spaces are preserved. Impression: Right hip intertrochanteric fracture, also previously demonstrated on CT
--- NOTE | 2018-09-18 16:00 | Diagnostic Imaging Report ---
INDICATION: Pain, intraoperative TECHNIQUE: Intraoperative imaging Fluoroscopy time: 39 seconds Total dose: 0.90763 mGym2 Total number of images: 5 COMPARISON: 09/17/2018 FINDINGS: Intraoperative images demonstrate reduction of previously demonstrated right hip intertrochanteric fracture with a medullary donald and compression screw IMPRESSION: Intraoperative imaging, as described
--- NOTE | 2018-09-18 16:02 | Diagnostic Imaging Report ---
Indication: Postoperative, right hip fracture, pain Technique: One view of the pelvis Comparison: 09/17/2018 Findings: Signal postoperative image demonstrates interim surgical reduction of previously demonstrated right hip intertrochanteric action with a medullary donald and compression screw. Fracture appears well aligned. Retained air from the surgical exposure is seen within the soft tissues. There is a Rogers catheter. Impression: Postoperative right hip, no unusual features
[2018-09-18] MEDS: Docusate 100mg cap ORAL SCH (17:41)
[2018-09-18] MEDS: Metamucil Pkt ORAL SCH (17:41)
[2018-09-18] MEDS: D5 1/2NS w/KCl 20mEq 1,000 ML IV SCH (18:04)
--- NOTE | 2018-09-18 19:44 | Cardiology Report ---
APPROVED REPORT EKG Measurement Heart [id number] Normal sinus rhythm Right bundle branch block Abnormal ECG
[2018-09-18] MEDS: HYDROmorphone 1mg/ml Carpuject SUBQ PRN (20:28)
[2018-09-18] MEDS ORDERED: ceFAZolin sod 2 GM in D5W 110 ML IV SCH (21:00)
--- NOTE | 2018-09-18 23:30 | Operative Note - Dictated ---
DATE OF OPERATION: 09/18/2018 PREOPERATIVE DIAGNOSIS: Right hip comminuted intertrochanteric fracture. POSTOPERATIVE DIAGNOSIS: Right hip comminuted intertrochanteric fracture. PROCEDURE: Right hip open reduction and internal fixation using a short 125-degree gamma nail with distal screw fixation. SURGEON: Omari Edwards M.D. WATCH ASSEMBLER: Mindi Oneill PA-C. ANESTHESIOLOGIST: Manuel Adams M.D. ANESTHESIA: Spinal anesthesia. ESTIMATED BLOOD LOSS: Less than 100 mL. COMPLICATIONS: None. BRIEF HISTORY: The patient is a pleasant 88-year-old female, who sustained a mechanical fall and broke her right hip. She was admitted to the hospital. Orthopedic consultation was obtained. She was optimized medically. After full discussion of risks and benefits of surgery and complications associated with it including infection, bleeding, neurovascular complication, possibility of malunion, possibility of nonunion, possibility of need for further surgery, possibility of need for other treatments, she opted for surgical treatment as described above. OPERATIVE PROCEDURE: The patient was brought to the operating table and was placed supine. All pressure points were well padded. Spinal anesthesia was induced and the right hip was prepped and draped in the usual sterile fashion. The right hip was placed in the traction and the left leg was placed in a well leg cruz to assure that the hip traction could be obtained. At this point, the hip was reduced using traction and internal rotation, which reduced the fracture very well. At this point, after prep and drape of the right hip, a standard incision was made approximately 2 cm proximal to the greater trochanter. Incision was taken through the subcutaneous tissue and the gluteal fascia was opened. The trochanter could be palpated. At this point, a guidewire was placed through the greater trochanter down into the distal fragment. This was checked on AP and lateral and appeared to be in great position. At this point, proximal reaming was performed and subsequently a short 125-degree gamma nail was placed in. There was no significant incarceration that could be appreciated as the nail was put in. At this point, once the nail was down, a guidewire was placed through the guide from lateral cortex through the nail into the neck into the head. This was in a center-center position. The screw was placed all the way subcortical. Measurements were made. A 90 mm screw appeared to be the right size. Therefore, a 90 mm screw was then obtained and the hip was reamed and 90 mm screw was placed without any complications. Once this was completed, the locking screw was then locked from the top all the way was turned half, turned back to allow for compression during weightbearing. At this point, all wounds were thoroughly irrigated using copious amount of fluid. A 32.5 mm distal locking screw was then placed into the guide to assure distal rotational fixation. Once this was completed, all wounds were thoroughly irrigated using copious amount of fluid. The gluteal fascia was closed using #1 Vicryl suture. Subcutaneous tissue was closed using 2-0 Vicryl suture and skin was closed using 3-0 Monocryl suture. All lap counts and instrument counts were correct. The patient was then taken off the fracture table and taken to the recovery room in stable condition. Omari Edwards M.D. DR: STEFFI JOB#: [id number] CC: ANGELICA
[2018-09-19] VITALS (7 sets, daily range): BP systolic 115–146; BP diastolic 62–75
[2018-09-19] MEDS: D5 1/2NS w/KCl 20mEq 1,000 ML IV SCH ×3 (03:42→20:40)
[2018-09-19] MEDS: ceFAZolin 2gm/50ml Premix 50 ML IV SCH ×2 (03:44→12:38)
[2018-09-19] MEDS: HYDROmorphone 1mg/ml Carpuject SUBQ PRN (06:37)
[2018-09-19] MEDS ORDERED: Epogen (for non ESRD use) SUBQ ONE (06:45)
[2018-09-19 07:17] LABS: ANION GAP 8 mmol/L (5-15); BLOOD UREA NITROGEN 25 mg/dL (7-18); CALCIUM 8.1 MG/DL (8.5-10.1); CARBON DIOXIDE 26 MMOL/L (21-32); CHLORIDE 106 MMOL/L (98-107); CREATININE 0.6 MG/DL (0.55-1.30); POTASSIUM 3.6 MMOL/L (3.5-5.1); SODIUM 139 MMOL/L (136-145)
[2018-09-19 07:22] LABS: HEMATOCRIT 28.1 % (37.0-47.0); HEMOGLOBIN 9.5 G/DL (12.0-16.0); MEAN CORPUSCULAR VOLUME 86 FL (80-99); PLATELET COUNT 131 K/UL (150-450); RED BLOOD COUNT 3.27 M/UL (4.20-5.40); RED CELL DISTRIBUTION WIDTH 11.8 % (11.6-14.8); WHITE BLOOD COUNT 6.1 K/UL (4.8-10.8)
[2018-09-19 07:51] LABS: % IRON SATURATION 91 % (15-50); IRON 265 ug/dL (50-175); TOTAL IRON BINDING CAPACITY 291 ug/dL (250-450)
[2018-09-19 08:01] LABS: BILIRUBIN,TOTAL 0.6 MG/DL (0.2-1.0); FERRITIN 31 NG/ML (8-388)
--- NOTE | 2018-09-19 08:11 | Orthopedic Progress Note ---
Orthopedic - Progress Note Subjective Symptoms: c/o post-op hip pain Objective Laboratory Tests Test 09/18/18 08:40 09/19/18 06:06 White Blood Count 6.8 K/UL (4.8-10.8) # 6.1 K/UL (4.8-10.8) Red Blood Count 2.88 M/UL (4.20-5.40) L 3.27 M/UL (4.20-5.40) L Hemoglobin 8.1 G/DL (12.0-16.0) L 9.5 G/DL (12.0-16.0) L Hematocrit 25.1 % (37.0-47.0) L 28.1 % (37.0-47.0) L Mean Corpuscular Volume 87 FL (80-99) 86 FL (80-99) Mean Corpuscular Hemoglobin 28.0 PG (27.0-31.0) 29.2 PG (27.0-31.0) Mean Corpuscular Hemoglobin Concent 32.1 G/DL (32.0-36.0) 34.0 G/DL (32.0-36.0) Red Cell Distribution Width 12.6 % (11.6-14.8) 11.8 % (11.6-14.8) Platelet Count 177 K/UL (150-450) 131 K/UL (150-450) L Mean Platelet Volume 5.8 FL (6.5-10.1) L 6.7 FL (6.5-10.1) Neutrophils (%) (Auto) 83.1 % (45.0-75.0) H % (45.0-75.0) Lymphocytes (%) (Auto) 10.3 % (20.0-45.0) L % (20.0-45.0) Monocytes (%) (Auto) 6.4 % (1.0-10.0) % (1.0-10.0) Eosinophils (%) (Auto) 0.0 % (0.0-3.0) % (0.0-3.0) Basophils (%) (Auto) 0.3 % (0.0-2.0) % (0.0-2.0) Sodium Level 140 MMOL/L (136-145) 139 MMOL/L (136-145) Potassium Level 3.6 MMOL/L (3.5-5.1) 3.6 MMOL/L (3.5-5.1) Chloride Level 108 MMOL/L (98-107) H 106 MMOL/L (98-107) Carbon Dioxide Level 23 MMOL/L (21-32) 26 MMOL/L (21-32) Anion Gap 9 mmol/L (5-15) 8 mmol/L (5-15) Blood Urea Nitrogen 28 mg/dL (7-18) H 25 mg/dL (7-18) H Creatinine 0.7 MG/DL (0.55-1.30) 0.6 MG/DL (0.55-1.30) Estimat Glomerular Filtration Rate mL/min (>60) mL/min (>60) Glucose Level 112 MG/DL (74-106) H 139 MG/DL (74-106) H Calcium Level 8.1 MG/DL (8.5-10.1) L 8.1 MG/DL (8.5-10.1) L Differential Total Cells Counted 100 Neutrophils % (Manual) 80 % (45-75) H Lymphocytes % (Manual) 14 % (20-45) L Monocytes % (Manual) 5 % (1-10) Eosinophils % (Manual) 1 % (0-3) Basophils % (Manual) 0 % (0-2) Band Neutrophils 0 % (0-8) Platelet Estimate Decreased L Platelet Morphology Normal Hypochromasia 2+ Anisocytosis 1+ Spherocytes 1+ Reticulocyte Count Pending Haptoglobin Pending Iron Level 265 ug/dL (50-175) H Total Iron Binding Capacity 291 ug/dL (250-450) Percent Iron Saturation 91 % (15-50) H Unsaturated Iron Binding 26 ug/dL (112-346) L Ferritin 31 NG/ML (8-388) Total Bilirubin 0.6 MG/DL (0.2-1.0) Vitamin B12 Level 194 PG/ML (193-986) Thyroid Stimulating Hormone (TSH) 0.525 uiU/mL (0.358-3.740) Last 24 Hour Vital Signs Date Time Temp Pulse Resp B/P (MAP) Pulse Ox O2 Delivery O2 Flow Rate FiO2 09/19/18 04:00 98.2 87 17 138/69 (92) 98 09/19/18 00:00 98.1 82 19 126/67 (86) 97 09/18/18 21:00 Room Air 09/18/18 20:00 98.3 95 17 135/75 (95) 99 09/18/18 17:49 Room Air 09/18/18 17:30 97.1 87 20 149/78 (101) 100 09/18/18 17:15 97.9 83 20 149/79 (102) 100 09/18/18 16:30 97.8 87 18 146/78 (100) 100 09/18/18 15:15 81 18 153/73 100 Nasal Cannula 3 09/18/18 15:00 81 18 153/80 100 Nasal Cannula 3 09/18/18 14:42 88 18 144/83 100 Simple Mask 8 09/18/18 14:23 74 18 153/80 100 Simple Mask 8 09/18/18 14:18 81 18 150/81 100 Simple Mask 8 09/18/18 14:13 98.5 80 18 159/85 100 Simple Mask 8 09/18/18 14:11 99 16 100 09/18/18 12:00 97.8 85 18 144/78 (100) 96 09/18/18 08:27 Room Air Intake and Output 09/18/18 09/19/18 18:59 06:59 Intake Total 820 ml 515 ml Output Total 900 ml 400 ml Balance -80 ml 115 ml Intake Oral 220 ml 240 ml IV Total 600 ml 275 ml Output Urine Total 850 ml 400 ml Estimated Blood Loss 50 ml Laboratory Tests Test 09/18/18 08:40 09/19/18 06:06 White Blood Count 6.8 K/UL (4.8-10.8) # 6.1 K/UL (4.8-10.8) Red Blood Count 2.88 M/UL (4.20-5.40) L 3.27 M/UL (4.20-5.40) L Hemoglobin 8.1 G/DL (12.0-16.0) L 9.5 G/DL (12.0-16.0) L Hematocrit 25.1 % (37.0-47.0) L 28.1 % (37.0-47.0) L Mean Corpuscular Volume 87 FL (80-99) 86 FL (80-99) Mean Corpuscular Hemoglobin 28.0 PG (27.0-31.0) 29.2 PG (27.0-31.0) Mean Corpuscular Hemoglobin Concent 32.1 G/DL (32.0-36.0) 34.0 G/DL (32.0-36.0) Red Cell Distribution Width 12.6 % (11.6-14.8) 11.8 % (11.6-14.8) Platelet Count 177 K/UL (150-450) 131 K/UL (150-450) L Mean Platelet Volume 5.8 FL (6.5-10.1) L 6.7 FL (6.5-10.1) Neutrophils (%) (Auto) 83.1 % (45.0-75.0) H % (45.0-75.0) Lymphocytes (%) (Auto) 10.3 % (20.0-45.0) L % (20.0-45.0) Monocytes (%) (Auto) 6.4 % (1.0-10.0) % (1.0-10.0) Eosinophils (%) (Auto) 0.0 % (0.0-3.0) % (0.0-3.0) Basophils (%) (Auto) 0.3 % (0.0-2.0) % (0.0-2.0) Sodium Level 140 MMOL/L (136-145) 139 MMOL/L (136-145) Potassium Level 3.6 MMOL/L (3.5-5.1) 3.6 MMOL/L (3.5-5.1) Chloride Level 108 MMOL/L (98-107) H 106 MMOL/L (98-107) Carbon Dioxide Level 23 MMOL/L (21-32) 26 MMOL/L (21-32) Anion Gap 9 mmol/L (5-15) 8 mmol/L (5-15) Blood Urea Nitrogen 28 mg/dL (7-18) H 25 mg/dL (7-18) H Creatinine 0.7 MG/DL (0.55-1.30) 0.6 MG/DL (0.55-1.30) Estimat Glomerular Filtration Rate mL/min (>60) mL/min (>60) Glucose Level 112 MG/DL (74-106) H 139 MG/DL (74-106) H Calcium Level 8.1 MG/DL (8.5-10.1) L 8.1 MG/DL (8.5-10.1) L Differential Total Cells Counted 100 Neutrophils % (Manual) 80 % (45-75) H Lymphocytes % (Manual) 14 % (20-45) L Monocytes % (Manual) 5 % (1-10) Eosinophils % (Manual) 1 % (0-3) Basophils % (Manual) 0 % (0-2) Band Neutrophils 0 % (0-8) Platelet Estimate Decreased L Platelet Morphology Normal Hypochromasia 2+ Anisocytosis 1+ Spherocytes 1+ Reticulocyte Count Pending Haptoglobin Pending Iron Level 265 ug/dL (50-175) H Total Iron Binding Capacity 291 ug/dL (250-450) Percent Iron Saturation 91 % (15-50) H Unsaturated Iron Binding 26 ug/dL (112-346) L Ferritin 31 NG/ML (8-388) Total Bilirubin 0.6 MG/DL (0.2-1.0) Vitamin B12 Level 194 PG/ML (193-986) Thyroid Stimulating Hormone (TSH) 0.525 uiU/mL (0.358-3.740) Wound: clean, dry, intact Drains: none Neuro Status: normal Vascular Status: normal Additional Comments xray reviewed Assessment Post-op Diagnosis POD 1 Procedure Performed rt hip ORIF Plan Plan: PT, pain management, discharge plan - fu ortho as outpt, other - monitor H&H. s/p 2 units yesterday Mindi Oneill Sep 19, 2018 08:11
--- NOTE | 2018-09-19 08:59 | General Progress Note ---
Assessment/Plan Problem List: (1) Intertrochanteric fracture of right femur ICD Codes: S72.141A - Displaced intertrochanteric fracture of right femur, initial encounter for closed fracture SNOMED: 072184289 Qualifiers: Qualified Codes: S72.141A - Displaced intertrochanteric fracture of right femur, initial encounter for closed fracture (2) Fall from ground level ICD Codes: W18.30XA - Fall on same level, unspecified, initial encounter SNOMED: 25114114 (3) Scalp abrasion ICD Codes: S00.01XA - Abrasion of scalp, initial encounter SNOMED: 843928759 Qualifiers: Qualified Codes: S00.01XA - Abrasion of scalp, initial encounter (4) Multiple injuries due to trauma ICD Codes: T07.XXXA - Unspecified multiple injuries, initial encounter SNOMED: 809528569 (5) Prolapsed uterus Assessment & Plan: stable outpt f/u ICD Codes: N81.4 - Uterovaginal prolapse, unspecified SNOMED: 60532251 (6) Intractable pain ICD Codes: R52 - Pain, unspecified SNOMED: 57608471 (7) Microcytic anemia ICD Codes: D50.9 - Iron deficiency anemia, unspecified SNOMED: 816994948 Status: stable Assessment/Plan #Ground level fall #Intractable Pain #Intertrochanteric fracture of right femur #Multiple injuries due to trauma #Scalp Abrasion #s/p right hip open reduction and internal fixation #Post- op pain - CTH reviewed, neg acute - CT pelvis reviewed, Positive for comminuted right hip intertrochanteric fracture - (ortho) consulted, s/p Right hip open reduction and internal fixation yesterday - currently with post op pain, required 2U PRBC during surgery - continue pain control with IV Morphin 2mg q4hrs prn pain - periop: pain control, ancef x1 per surgery - post op care: incentive spirometry, mobilization, PT, lovenox started per surgery #Microcytic anemia - hgb stable - required 2U PRBC during surgery DIET: regular diet ppxL lovenox I have documented, updated, and reviewed the patient's current medication list and have documented it in the patient's note. I have spent over 42 minutes on this patient's case, counseling and/or care coordination including over 25 minutes face to face time. Madonna Bunch MD [facility] Subjective Date patient seen: Sep 19, 2018 Time patient seen: 08:55 Allergies: Coded Allergies: No Known Allergies (Unverified , 09/17/18) Subjective s/p GLF, multiple injuries due to trauma, intertrochanteric fracture of right femur, scalp abrasion, intractable pain stable, doing well, denies any complaints, states pain is well controlled with IV pain medications denies any fevers/chills planned for OR per ortho no acute events overnight ROS: 12 point ros reviewed, negative except for the above Objective Last 24 Hour Vital Signs Date Time Temp Pulse Resp B/P (MAP) Pulse Ox O2 Delivery O2 Flow Rate FiO2 09/19/18 04:00 98.2 87 17 138/69 (92) 98 09/19/18 00:00 98.1 82 19 126/67 (86) 97 09/18/18 21:00 Room Air 09/18/18 20:00 98.3 95 17 135/75 (95) 99 09/18/18 17:49 Room Air 09/18/18 17:30 97.1 87 20 149/78 (101) 100 09/18/18 17:15 97.9 83 20 149/79 (102) 100 09/18/18 16:30 97.8 87 18 146/78 (100) 100 09/18/18 15:15 81 18 153/73 100 Nasal Cannula 3 09/18/18 15:00 81 18 153/80 100 Nasal Cannula 3 09/18/18 14:42 88 18 144/83 100 Simple Mask 8 09/18/18 14:23 74 18 153/80 100 Simple Mask 8 09/18/18 14:18 81 18 150/81 100 Simple Mask 8 09/18/18 14:13 98.5 80 18 159/85 100 Simple Mask 8 09/18/18 14:11 99 16 100 09/18/18 12:00 97.8 85 18 144/78 (100) 96 Intake and Output 09/18/18 09/19/18 19:00 07:00 Intake Total 720 ml 590 ml Output Total 900 ml 400 ml Balance -180 ml 190 ml Intake Oral 220 ml 240 ml IV Total 500 ml 350 ml Output Urine Total 850 ml 400 ml Estimated Blood Loss 50 ml Laboratory Tests 09/19/18 06:06: White Blood Count 6.1, Red Blood Count 3.27L, Hemoglobin 9.5L, Hematocrit 28.1L , Mean Corpuscular Volume 86, Mean Corpuscular Hemoglobin 29.2, Mean Corpuscular Hemoglobin Concent 34.0, Red Cell Distribution Width 11.8, Platelet Count 131L, Mean Platelet Volume 6.7, Neutrophils (%) (Auto) , Lymphocytes (%) ( Auto) , Monocytes (%) (Auto) , Eosinophils (%) (Auto) , Basophils (%) (Auto) , Differential Total Cells Counted 100, Neutrophils % (Manual) 80H, Lymphocytes % (Manual) 14L, Monocytes % (Manual) 5, Eosinophils % (Manual) 1, Basophils % ( Manual) 0, Band Neutrophils 0, Platelet Estimate DecreasedL, Platelet Morphology Normal, Hypochromasia 2+, Anisocytosis 1+, Spherocytes 1+, Reticulocyte Count [Pending], Haptoglobin [Pending], Sodium Level 139, Potassium Level 3.6, Chloride Level 106, Carbon Dioxide Level 26, Anion Gap 8, Blood Urea Nitrogen 25H, Creatinine 0.6, Estimat Glomerular Filtration Rate , Glucose Level 139H, Calcium Level 8.1L, Iron Level 265H, Total Iron Binding Capacity 291, Percent Iron Saturation 91H, Unsaturated Iron Binding 26L, Ferritin 31, Total Bilirubin 0.6, Vitamin B12 Level 194, Thyroid Stimulating Hormone (TSH) 0.525 09/19/18 08:20: Prothrombin Time [Pending], Prothromb Time International Ratio [Pending] Height (Feet): 4 Height (Inches): 11.00 Weight (Pounds): 99 Objective General Appearance: WD/WN, no apparent distress, alert EENT: PERRL/EOMI, normal ENT inspection, TMs normal, pharynx normal Neck: non-tender, normal alignment, supple, normal inspection Cardiovascular: normal peripheral pulses, normal rate, regular rhythm Respiratory/Chest: chest wall non-tender, lungs clear, normal breath sounds, no respiratory distress, no accessory muscle use Abdomen: normal bowel sounds, non tender, soft, no organomegaly, no mass Extremities: normal inspection, no calf tenderness, other - right hip TTP and dec rom due to pain, well healing incision 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
[2018-09-19] MEDS ORDERED: Enoxaparin 40mg Inj SUBQ SCH ×2 (09:00→09:15)
[2018-09-19] MEDS: Docusate 100mg cap ORAL SCH ×3 (09:14→17:38)
[2018-09-19] MEDS: celeBREX 200mg Cap **SURGERY PATIENTS ONLY ORAL SCH (09:14)
[2018-09-19] MEDS: Metamucil Pkt ORAL SCH ×3 (09:14→17:38)
--- NOTE | 2018-09-19 11:25 | 48 Hour Post Anesthesia Eval ---
Post Anesthesia Evaluation Procedure: ORIF R Hip Date of Evaluation: Sep 19, 2018 Airway: patent Nausea: No Vomiting: No Pain Intensity: 0 Hydration Status: adequate Cardiopulmonary Status: at baseline Mental Status/LOC: patient returned to baseline Post-Anesthesia Complications: 0 Follow-up care needed: N/A - further care as per primary team Maris Mcqueen MD Sep 19, 2018 11:25
[2018-09-19] MEDS: HYDROcodone/Acetamin 7.5/325 tab ORAL PRN ×2 (12:48→17:39)
--- NOTE | 2018-09-19 16:15 | Consultation ---
DATE OF CONSULTATION: 09/19/2018 HEMATOLOGY/ONCOLOGY CONSULTATION CONSULTING PHYSICIAN: Miller Sylvester M.D. REQUESTING PHYSICIANS: Julio Pineda M.D. and Madonna Bunch M.D. REASON FOR CONSULTATION: Evaluation of anemia. IDENTIFYING DATA: The patient is a pleasant 88-year-old female with history of uterine prolapse at this time presents with recent ground level fall, was at a bus stop, trying to get into the bus when she slipped and fell and apparently hit her head, however, states she was well controlled. The patient hurt her hip on the right side. States 10/10 pain, nonradiating. Denies any other medications. Lives in an elderly citizen home, presents to the ER. CT scan of pelvis was done, reviewed positive for right hip comminuted intertrochanteric fracture with a plan for OR. At this time, the patient has completed surgery yesterday and tolerated the procedure well. Seen by Dr. Oneill and Dr. Edwards and completed open reduction and internal fixation and currently recovering on the third floor from surgery and received transfusion. The Hematology Service consulted given ongoing anemia. PAST MEDICAL HISTORY: Recent ground level fall, history of anemia, intractable pain, intertrochanteric fracture, status post surgical repair, ORIF. ALLERGIES: No known drug allergies. SOCIAL HISTORY: No alcohol, tobacco, or illicit drug use. FAMILY HISTORY: Noncontributory. No history of coronary events or malignancy. CODE STATUS: Full Code. REVIEW OF SYSTEMS: CONSTITUTIONAL: No fever, chills, or night sweats. SKIN: No rashes, bumps, or itching. HEENT: No headache, hearing or vision changes. BREASTS: No lumps, pain, or discharge. PULMONARY: No cough, sputum, or shortness of breath. GASTROINTESTINAL: No nausea, vomiting, or diarrhea. GENITOURINARY: No dysuria, frequency, or urgency. MUSCULOSKELETAL: No muscle pain, joint swelling, or trauma. PHYSICAL EXAMINATION: VITAL SIGNS: Reviewed. GENERAL: No acute distress. PULMONARY: Decreased breath sounds. CARDIOVASCULAR: Regular rate. No S3 or S4. ABDOMEN: Soft, nontender, and nondistended. EXTREMITIES: No cyanosis, swelling, or edema. LABORATORY DATA: WBC 6.8, hemoglobin 8.1, hematocrit 25, and platelet count 177,000. ASSESSMENT AND PLAN: 1. Anemia, likely related to underlying surgery, status post transfusion of blood. We will send for anemia panel. At this time, may consider use of Epogen with 1 dose. No anticoagulation at this time. 2. Intertrochanteric fracture of the right femur, status post repair. 3. Intractable pain, given the patient's current pain regimen with [place] with Tylenol. 4. Scalp abrasion. 5. Prolapsed uterus, outpatient monitor. 6. Deep venous thrombosis prophylaxis, status post surgery with Lovenox. I appreciate the consultation. Miller Sylvester M.D. DR: ELEANNE JOB#: [id number] CC:
[2018-09-20 04:30] VITALS: BP 130/64
[2018-09-20 06:43] LABS: BASOPHILS % (AUTO) 0.3 % (0.0-2.0); EOSINOPHILS % (AUTO) 1.1 % (0.0-3.0); HEMATOCRIT 27.1 % (37.0-47.0); HEMOGLOBIN 9.1 G/DL (12.0-16.0); LYMPHOCYTES % (AUTO) 11.6 % (20.0-45.0); MEAN CORPUSCULAR VOLUME 87 FL (80-99); MONOCYTES % (AUTO) 6.2 % (1.0-10.0); NEUTROPHILS % (AUTO) 80.8 % (45.0-75.0); PLATELET COUNT 132 K/UL (150-450); RED BLOOD COUNT 3.12 M/UL (4.20-5.40); RED CELL DISTRIBUTION WIDTH 11.8 % (11.6-14.8); WHITE BLOOD COUNT 4.6 K/UL (4.8-10.8)
[2018-09-20 08:00] VITALS: BP 123/69
--- NOTE | 2018-09-20 08:13 | Discharge Summary ---
Discharge Summary Hospital Course Date of Admission Sep 17, 2018 at 09:31 Date of Discharge 09/20/18 Admitting Diagnosis FALL, HIP FX HPI Irene Freeman is a 88 year old female who was admitted on Sep 17, 2018 at 09:31 for Fall, Hip Facture presents after a recent GLF. patient was at a bus stop, was trying to get onto the bus when she slipped and fell. Patient states she hit her head, however states pain is well controlled. patient hurt her hip on the right side, states it is 10/10 pain, nonradiating. Denies taking any medications at home, denies any other medical conditions. States she lives in a elderly citizen home. patient presented to the ED, ct pelvis was done that was reviewed and positive for a right hip comminuted intertrochanteric fracture. (ortho) consulted, s/p Right hip open reduction and internal fixation 09/18/18, due to microcytic anemia, required 2U PRBC during surgery, h/ h stable postop. pain stable postop. patient doing well, denies any complaints, no cp or sob, no n/v, no headaches. states pain has improved drastically. Patient is agreeable to go to a nursing facility for PT f/u with ortho, pcp outpt Hospital Course #Ground level fall #Intractable Pain #Intertrochanteric fracture of right femur #Multiple injuries due to trauma #Scalp Abrasion #s/p right hip open reduction and internal fixation #Post- op pain - CTH reviewed, neg acute - CT pelvis reviewed, Positive for comminuted right hip intertrochanteric fracture - (ortho) consulted, s/p Right hip open reduction and internal fixation yesterday - currently with post op pain, required 2U PRBC during surgery, h/h stable - not requiring IV pain meds anymore - improving, stable, denies any pain currently - post op care: incentive spirometry, mobilization, PT, lovenox started per surgery, plan for discharge to SNF PT #Microcytic anemia - hgb stable - required 2U PRBC during surgery DIET: regular diet ppxL lovenox I have documented, updated, and reviewed the patient's current medication list and have documented it in the patient's note. I have spent over 43 minutes on this patient's case, counseling and/or care coordination including discharge coordination for this patient. patient is able to verbalize plan to me and is agreeable to above mentioned plan for dc to SNF for therapy. Madonna Bunch MD [facility] Discharge Medications New Medications: Celecoxib* (Celebrex*) 200 Mg Capsule 200 MG ORAL DAILY for 30 Days, #30 CAP Docusate Sodium (Dok) 100 Mg Capsule 100 MG ORAL THREE TIMES A DAY for 30 Days, #30 CAP Enoxaparin* (Lovenox*) 30 Mg/0.3 Ml Inj 30 MG SUBQ DAILY for 30 Days, #30 UNIT Ferrous Sulfate (Feosol) 325 Mg Tablet 325 MG ORAL THREE TIMES A DAY for 30 Days, #30 TAB Discharge Condition Upon Discharge: stable Discharge Disposition Patient was discharged to SNF Discharge Diagnoses: (1) Intertrochanteric fracture of right femur (2) Scalp abrasion (3) Multiple injuries due to trauma (4) Fall from ground level (5) Hypertension (6) Intractable pain (7) Hypertensive urgency (8) Microcytic anemia Madonna Bunch MD Sep 20, 2018 08:13
[2018-09-20] MEDS: Metamucil Pkt ORAL SCH ×2 (08:25→13:13)
[2018-09-20] MEDS: Docusate 100mg cap ORAL SCH ×2 (08:26→13:13)
[2018-09-20] MEDS: celeBREX 200mg Cap **SURGERY PATIENTS ONLY ORAL SCH (08:26)
[2018-09-20] MEDS: HYDROcodone/Acetamin 7.5/325 tab ORAL PRN (08:28)
[2018-09-20] MEDS ORDERED: Enoxaparin 30mg Inj SUBQ SCH (09:00)
[2018-09-20 12:00] VITALS: BP 124/71
[2018-09-20] MEDS: D5 1/2NS w/KCl 20mEq 1,000 ML IV SCH (12:03)
--- NOTE | 2018-09-20 12:49 | General Progress Note ---
Assessment/Plan Status: stable Assessment/Plan # Anemia of iron deficiency, likely related to underlying surgery, status post transfusion of blood 09/18. --> anemia panel has been reviewed. Ferritin at 31. --> Cont po iron 3x/daily --> Hbg goal >, transfuse prn. --> No anticoagulation at this time. # Thrombocytopenia - potential causes multifactorial, evaluate liver and viral etiologies to begin, also could be related to underlying medications patient has received. --> Hep panel and HIV recommended as outpatient. --> US abd to evaluate for cirrhosis and hsm recommended as outpatient. --> Peripheral smear ordered to evaluate for blasts/schistocytes --> abx and other meds have been reviewed --> ok for ppx if plt >50k w/ wither heparin or lovenox --> Transfuse if Plt < 20k and fever, or if Plt < 10k without fever # Intertrochanteric fracture of the right femur, status post repair. # Intractable pain, given the patient's current pain regimen with [place] with Tylenol. # Scalp abrasion. # Prolapsed uterus, outpatient monitor. # Deep venous thrombosis prophylaxis, status post surgery with Lovenox. I appreciate the consultation. Subjective Date patient seen: Sep 20, 2018 Hematologic/Lymphatic: Reports: anemia Allergies: Coded Allergies: No Known Allergies (Unverified , 09/17/18) Subjective Pt awake and alert. No acute events. H/H stable. DC stable. Objective Last 24 Hour Vital Signs Date Time Temp Pulse Resp B/P (MAP) Pulse Ox O2 Delivery O2 Flow Rate FiO2 09/20/18 09:00 Room Air 09/20/18 08:00 97.9 73 19 123/69 (87) 96 09/20/18 04:30 98.2 83 18 130/64 (86) 94 09/19/18 23:59 98.0 69 18 125/75 (92) 98 09/19/18 21:31 Room Air 09/19/18 20:59 98.2 76 17 128/70 (89) 97 09/19/18 16:00 98.4 77 16 118/62 (80) 100 09/19/18 14:09 Room Air Intake and Output 09/19/18 09/20/18 19:00 07:00 Intake Total 1257.5 ml 1640 ml Output Total 400 ml 100 ml Balance 857.5 ml 1540 ml Intake Oral 270 ml 740 ml IV Total 987.5 ml 900 ml Output Urine Total 400 ml 100 ml # Voids 1 5 Laboratory Tests 09/20/18 05:25: White Blood Count 4.6L, Red Blood Count 3.12L, Hemoglobin 9.1L, Hematocrit 27.1L , Mean Corpuscular Volume 87, Mean Corpuscular Hemoglobin 29.1, Mean Corpuscular Hemoglobin Concent 33.6, Red Cell Distribution Width 11.8, Platelet Count 132L, Mean Platelet Volume 6.3L, Neutrophils (%) (Auto) 80.8H, Lymphocytes (%) (Auto) 11.6L, Monocytes (%) (Auto) 6.2, Eosinophils (%) (Auto) 1.1, Basophils (%) (Auto) 0.3 Height (Feet): 4 Height (Inches): 11.00 Weight (Pounds): 99 Objective PHYSICAL EXAMINATION: VITAL SIGNS: Reviewed. GENERAL: No acute distress. PULMONARY: Decreased breath sounds. CARDIOVASCULAR: Regular rate. No S3 or S4. ABDOMEN: Soft, nontender, and nondistended. EXTREMITIES: No cyanosis, swelling, or edema. Miller Sylvester MD Sep 20, 2018 12:49
[2018-09-20 16:00] VITALS: BP 118/58
--- NOTE | 2018-09-20 20:18 | Cardiology Report ---
APPROVED REPORT EXAM: Two-dimensional and M-mode echocardiogram with Doppler and color Doppler. INDICATION PRE-OP M-Mode DIMENSIONS IVSd1.1 (0.7-1.1cm)Left Atrium (MM)2.5 (1.6-4.0cm) LVDd4.2 (3.5-5.6cm)Aortic Root3.3 (2.0-3.7cm) PWd0.7 (0.7-1.1cm)Aortic Cusp Exc.1.5 (1.5-2.0cm) IVSs1.7 cm LVDs2.6 (2.5-4.0cm) PWs1.3 cm Normal left ventricular chamber size, systolic function and wall motion. Left ventricular ejection fraction estimated to be 60-65%. No evidence left ventricular hypertrophy . No evidence of pericardial effusion. All other cardiac chamber sizes are within normal limits. Focal aortic valve sclerosis with adequate cusp excursion. Thickened mitral valve leaflets with normal excursion. Mitral annulus and aortic root calcification. Pulmonic valve not well visualized. Normal tricuspid valve structure. IVC at normal size with physiologic collapse. A color flow and spectral Doppler study was performed and revealed: Mild aortic regurgitation. Mild mitral regurgitation. Mitral diastolic velocities suggest reduced left ventricular relaxation c/w mild LV diastolic dysfunction (Grade I ). Mild tricuspid regurgitation. Tricuspid systolic velocities suggests peak right ventricular systolic pressure of 46 mmHg, consistent with moderate pulmonary hypertension. No Pulmonic regurgitation present.
== END 2018-09-20 16:30 | DRG 482 ==
LOC: EDBD 08:23 → EMR 08:50 → 3E 09:31 → EDBD 09:31 → EMR 10:46 → EDBEDREQ 10:46
PROC: 30230N1 Transfusion of Nonautologous Red Blood Cells into Peripheral Vein, Open Approach (ICD-10-PCS; 2018-09-18)
PROC: 0QS604Z Reposition Right Upper Femur with Internal Fixation Device, Open Approach (ICD-10-PCS; principal; 2018-09-18 12:15)
DX: S72.141A Displaced intertrochanteric fracture of right femur, initial encounter for closed fracture (principal); S00.01XA Abrasion of scalp, initial encounter; N81.4 Uterovaginal prolapse, unspecified; D50.9 Iron deficiency anemia, unspecified; V78.4XXA Person boarding or alighting from bus injured in noncollision transport accident, initial encounter; Y92.89 Other specified places as the place of occurrence of the external cause; I16.0 Hypertensive urgency; I10 Essential (primary) hypertension
CPT/HCPCS: 36415; 70450; 72170; 72192; 80048; 80053; 82247; 82607; 82728; 83010; 83540; 83550; 84443; 85007; 85025; 85044; 85060; 85610; 85730; 86850; 86900; 86901; 86920; 90471; 90715; 93005; 93306; 96374; 96375; 99284; 99285; J2250